=== PATIENT | female | born 1990 | race Caucasian/White ===

== ENCOUNTER → 2021-05-18 12:57 | Outpatient (CLI) | payer BC, SELFPAY ==
--- NOTE | ~2021-05-18 | US_ITS ---
EXAMINATION: US OB /maternal detail DATE: 05/18/2021 13:30 INDICATION: Second trimester anatomic survey TECHNIQUE: Real-time ultrasound of the pelvis was performed. COMPARISON: None. FINDINGS: There is a single living fetus in variable presentation. The placenta is anterior and 4.7 cm from the internal cervical os. heart rate is 147 beats per minute (bpm). cardiac activity and fe lashell movement are noted. The amniotic fluid index is subjectively normal. The following anatomy was identified as normal: 4 chamber heart 3 vessel cord cord insertion kidneys urinary bladder stomach spine diaphragm ventricles cisterna magna cerebellum The following biometric data were obtained: Biparietal diameter (BPD): 4.4 cm; head circumference (HC): 16.9 cm; abdominal circumference (AC): 14 .1 cm; femur length (FL): 2.8 cm. These measurements are concordant. Estimated weight is 278 g +/- 41 g, which correlates with the 48th percentile when 10/11/2021 is used as estimated date of delivery. As single measurements, these parameters are each equal to the following estimated gestational ages w ith ranges of +/- 2 standard deviations: BPD: 19 weeks 3 days ( 17 weeks 4 days - 21 weeks 1 days). HC: 19 weeks 4 days ( 18 weeks 1 days - 21 weeks 0 days). AC: 19 weeks 3 days ( 17 weeks 3 days - 21 weeks 4 days). FL: 18 weeks 5 days ( 16 weeks 6 days - 20 weeks 4 days). estimated gestational age based solely on measurements from this exam is 19 weeks 2 days +/- 1 weeks 2 days. IMPRESSION: 1. Single living fetus in variable presentation. 2. Estimated weight is 278 g +/- 41 g, which correlates with the 48th percentile when 10/11/2021 is used as estimated date of delivery. Reviewed, dictated and finalized at location A. IMPRESSION: 1. Single living fetus in variable presentation. 2. Estimated weight is 278 g +/- 41 g, which correlates with the 48th per centile when 10/11/2021 is used as estimated date of delivery.
== END ==
PROVIDERS: Visit Provider Obstetrics & Gynecology Gynecology
DX: Z34.92 Encounter for supervision of normal pregnancy, unspecified, second trimester (principal); Z3A.19 19 weeks gestation of pregnancy
CPT/HCPCS: 76805

== ENCOUNTER → 2021-07-06 13:25 | Outpatient (CLI) | payer BC, SELFPAY ==
--- NOTE | ~2021-07-06 | US_ITS ---
EXAMINATION: US OB follow up DATE: 07/06/2021 13:45 INDICATION: Size greater than dates, second trimester TECHNIQUE: Real-time ultrasound of the pelvis was performed. The interpreting radiologist was not pre sent for the study. COMPARISON: 05/18/2021 FINDINGS: There is a single living fetus in vertex presentation. The placenta is anterior and 8.7 cm from the internal cervical os. cardiac activity and movement are noted. heart rate is 150 beats per minute (bpm). The amniotic fluid index is 21.0 cm which is normal. The following biometric data were obtained: Biparietal diameter (BPD): 6.8 cm; head circumference (HC): 24.7 cm; abdominal circumference (AC): 22 .2 cm; femur length (FL): 5.0 cm. These measurements are concordant. Estimated weight is 989 g +/- 148 g, which correlates with the 69th percentile when 10/11/2021 is used as estimated date of delivery. As single measurements, these parameters are each equal to the following estimated gestational ages w ith ranges of +/- 2 standard deviations: BPD: 27 weeks 3 days ( 25 weeks 2 days - 29 weeks 4 days). HC: 26 weeks 6 days ( 24 weeks 6 days - 29 weeks 0 days). AC: 26 weeks 5 days ( 24 weeks 3 days - 28 weeks 6 days). FL: 27 weeks 0 days ( 24 weeks 6 days - 29 weeks 0 days). estimated gestational age based solely on measurements from this exam is 27 weeks 0 days +/- 1 weeks 6 days. IMPRESSION: 1. Single living fetus in vertex presentation. 2. Normal amniotic fluid index. 3. Estimated weight is 989 g +/- 148 g, which correlates with the 69th percentile when 10/11/2021 is used as estimated date of delivery. Reviewed, dictated and finalized at location B. IMPRESSION: 1. Single living fetus in vertex presentation. 2. Normal amniotic fluid index. 3. Estimated weight is 989 g +/- 148 g, which correlates with the 69th pe rcentile when 10/11/2021 is used as estimated date of delivery.
== END ==
PROVIDERS: Visit Provider Obstetrics & Gynecology Gynecology
DX: O36.63X0 Maternal care for excessive fetal growth, third trimester, not applicable or unspecified (principal); Z3A.27 27 weeks gestation of pregnancy
CPT/HCPCS: 76816

== ENCOUNTER → 2021-08-12 13:30 | Outpatient (CLI) | payer BC, SELFPAY ==
--- NOTE | ~2021-08-12 | US_ITS ---
EXAMINATION: US OB follow up DATE: 08/12/2021 13:55 INDICATION: Size greater than dates during third trimester TECHNIQUE: Real-time ultrasound of the pelvis was performed. The interpreting radiologist was not pre sent for the study. COMPARISON: 07/06/2021 FINDINGS: There is a single living fetus in breech presentation. The placenta is anterior and 12.8 cm from the internal cervical os. cardiac activity and movement are noted. heart rate is 133 beats per minute (bpm). The amniotic fluid index is 21.5 cm which is normal. The following biometric data were obtained: Biparietal diameter (BPD): 8.1m; head circumference (HC): 30.1; abdominal circumference (AC): 27.3; f emur length (FL): 5.8m. These measurements are concordant. Estimated weight is 1775+/- 266, which correlates with the 39th percentile when 10/11/2021 as es timated date of delivery. As single measurements, these parameters are each equal to the following estimated gestational ages w ith ranges of +/- 2 standard deviations: BPD: 32weeks 4 days ( 29weeks 3 days - 35weeks 4 days). HC: 33weeks 3 days ( 3 weeks 3 days - 36weeks 3 days). AC: 31weeks 3 days ( 28weeks 3 days - 34weeks 3 days). FL: 30weeks 4 days ( 27weeks 5 days - 33weeks 4 days). estimated gestational age based solely on measurements from this exam is 32weeks 0 days +/- 2 w eeks 2 days. IMPRESSION: 1. Single living fetus in breech presentation. 2. Normal amniotic fluid index. 3. Estimated weight is 1775+/- 266, which correlates with the 39th percentile when 2d as estimated date of delivery. Reviewed, dictated and finalized at location F. OPERATOR IMPRESSION: 1. Single living fetus in breech presentation. 2. Normal amniotic fluid index. 3. Estimated weight is 1775+/- 266, which correlates with the 39th percen tile when 10/11/2021 as estimated date of delivery.
== END ==
PROVIDERS: Visit Provider Nurse Practitioner
DX: Z34.93 Encounter for supervision of normal pregnancy, unspecified, third trimester (principal); Z3A.32 32 weeks gestation of pregnancy
CPT/HCPCS: 76816

== ENCOUNTER 2021-09-28 10:26 | Outpatient (CLI) | payer BC, SELFPAY ==
[2021-09-28 11:15] VITALS: BP 135/80; PULSE 103
[2021-09-28 11:19] LABS: Basophils Percent Auto 0.4 % (0.2-1.2); Eosinophils Absolute Auto 0.1 K/mm3 (0-0.3); Eosinophils Percent Auto 0.5 % (0-4.4); Hematocrit 35.9 % (37.0-47.0); Hemoglobin 12.2 g/dL (12.0-15.0); Immature Granulocyte Absolute 0.13 K/mm3 (0.00-0.031); Immature Granulocyte Percent A 1.2 % (0-0.5); Lymphocytes Absolute Auto 1.72 K/mm3 (0.9-3.2); Lymphocytes Percent Auto 15.8 % (18.3-44.2); Mean Corpuscular Hemoglobin 31.5 pg (26-34); Mean Corpuscular Volume 92.8 fl (80-100); Mean Platelet Volume 10.8 fl (7.4-10.4); Monocytes Absolute Auto 0.9 K/mm3 (0.1-0.6); Monocytes Percent Auto 8.5 % (2.6-8.5); Neutrophils Percent Auto 73.6 % (45.5-73.1); Platelet Count Result 191 k/mm3 (150-375); Red Blood Count 3.87 M/mm3 (4.2-5.4); Red Cell Distribution Width 13.2 % (11.5-14.5); White Blood Count 10.9 K/mm3 (4.5-10.0)
[2021-09-28 11:22] LABS: Add Urine Microscopic? NO; Appearance Urine Clear (Clear); Bilirubin Urine Negative (Negative); Blood Urine Negative (Negative); Color Urine Straw (Yellow); Glucose Urine UA Negative (Negative); Ketones Urine Negative (Negative); Leukocyte Esterase Ur Negative LEU/UL (NEGATIVE); Nitrate Urine Negative (Negative); Protein Urine Negative (Negative); Specific Grav Ur 1.004 (1.001-1.035); Urobilinogen Urine Negative mg/dL (<2.0)
[2021-09-28 11:30] VITALS: BP 137/82; PULSE 101
[2021-09-28 11:34] LABS: Alanine Aminotransferase 13 U/L (4-35); Albumin Level 3.7 g/dL (3.5-5.1); Alkaline Phosphatase 145 U/L (38-126); Anion Gap 10 mmol/L (8-16); Aspartate Amino Transferase 19 U/L (14-36); Bilirubin,Total 0.7 mg/dL (0.2-1.3); Blood Urea Nitrogen 7 mg/dL (7-17); Calcium 8.7 mg/dL (8.4-10.2); Carbon Dioxide 19 mmol/L (22-30); Chloride 104 mmol/L (98-107); Estimated Glomerular Filt Rate > 60; Glucose 103 mg/dL (65-110); Potassium 3.8 mmol/L (3.4-5.0); Sodium 133 mmol/L (137-145)
[2021-09-28 11:45] VITALS: BP 125/77; PULSE 97
[2021-09-28 12:00] VITALS: BP 125/84; PULSE 100
[2021-09-28 12:15] VITALS: BP 125/77; PULSE 102
[2021-09-28 12:30] VITALS: BP 135/91; PULSE 104
[2021-09-28 12:32] LABS: Creatinine Urine 29.6 mg/dL; Total Protein Urine Random 12 mg/dL; Ur Ttl Prot Creatinine Ratio 0.41 mg/mg (0-0.20)
--- NOTE | 2021-09-28 12:45 | PC.NURSE ---
1245- Spoke To Dr. Bean, patient labs and BPs reviewed. Orders to discharge to home with 24 hour urine, inductions scheduled for Monday10/04/2021 for 0500.
--- NOTE | 2021-09-29 06:56 | PM.OBTRLD ---
OB - Triage/Final Diagnosis Visit Information Reason for evaluation: other (PIH) Comments/Additional reasons for admission: I have assessed the risk for this patient, Stacy Doshi, and determined that she would benefit from observation care. Evaluation Laboratory results: Laboratory Tests 09/28/21 09/28/21 09/28/21 11:07 11:07 11:07 WBC 10.9 H RBC 3.87 L Hgb 12.2 Hct 35.9 L MCV 92.8 MCH 31.5 MCHC 34.0 RDW 13.2 Plt Count 191 MPV 10.8 H Immature Gran % (Auto) 1.2 H Neut % (Auto) 73.6 H Lymph % (Auto) 15.8 L Williams % (Auto) 8.5 Eos % (Auto) 0.5 Baso % (Auto) 0.4 Lymph # (Auto) 1.72 Williams # (Auto) 0.9 H Eos # (Auto) 0.1 Baso # (Auto) 0.0 Abs Immat Gran (auto) 0.13 H Absolute Neuts (auto) 8.0 H Absolute Nucleated RBC 0.0 Nucleated RBC % 0.0 Sodium Potassium Chloride Carbon Dioxide Anion Gap BUN Creatinine Estim Creat Clear Calc Estimated GFR Glucose Uric Acid Calcium Total Bilirubin AST ALT Alkaline Phosphatase Total Protein Albumin Urine Color Straw Urine Appearance Clear Urine pH 7.0 Ur Specific [place] 1.004 Urine Protein Negative Urine Glucose (UA) Negative Urine Ketones Negative Ur Blood (Man) Negative Urine Nitrate Negative Urine Bilirubin Negative Urine Urobilinogen Negative Ur Leukocyte Esterase Negative U Random Total Protein 12 Urine Creatinine 29.6 Protein/Creat Ratio 2 0.41 H 09/28/21 11:07 WBC RBC Hgb Hct MCV MCH MCHC RDW Plt Count MPV Immature Gran % (Auto) Neut % (Auto) Lymph % (Auto) Williams % (Auto) Eos % (Auto) Baso % (Auto) Lymph # (Auto) Williams # (Auto) Eos # (Auto) Baso # (Auto) Abs Immat Gran (auto) Absolute Neuts (auto) Absolute Nucleated RBC Nucleated RBC % Sodium 133 L Potassium 3.8 Chloride 104 Carbon Dioxide 19 L Anion Gap 10 BUN 7 Creatinine 0.50 L Estim Creat Clear Calc Not Reportable Estimated GFR > 60 Glucose 103 Uric Acid 5.0 Calcium 8.7 Total Bilirubin 0.7 AST 19 ALT 13 Alkaline Phosphatase 145 H Total Protein 6.0 L Albumin 3.7 Urine Color Urine Appearance Urine pH Ur Specific [place] Urine Protein Urine Glucose (UA) Urine Ketones Ur Blood (Man) Urine Nitrate Urine Bilirubin Urine Urobilinogen Ur Leukocyte Esterase U Random Total Protein Urine Creatinine Protein/Creat Ratio 2 Vital signs: Vital Signs - 24 hr 09/28/21 11:15 09/28/21 11:30 09/28/21 11:45 Pulse Rate 103 H 101 H 97 Blood Pressure 135/80 137/82 125/77 09/28/21 12:00 09/28/21 12:15 09/28/21 12:30 Pulse Rate 100 102 H 104 H Blood Pressure 125/84 125/77 135/91 H
== END 2021-09-28 12:45 | disposition home or self-care (01) ==
LOC: ANHOBOP 10:31 → ANHOBPP 10:31
PROVIDERS: Visit Provider Obstetrics & Gynecology Gynecology
DX: O13.9 Gestational [pregnancy-induced] hypertension without significant proteinuria, unspecified trimester (principal); Z3A.00 Weeks of gestation of pregnancy not specified
CPT/HCPCS: 36415; 59025; 80053; 81003; 82570; 84156; 84550; 85025; 87086; 99199

== ENCOUNTER 2021-09-29 18:30 | Outpatient (NON) | payer BC, SELFPAY ==
[2021-09-29 18:38] VITALS: BMI 40.1
[2021-09-29 20:10] LABS: Collection Time Urine 24 HOURS
[2021-09-29 20:13] LABS: Total Volume 24 Hour Urine 2500 ml
[2021-09-29 20:19] LABS: Specific Gravity Ur 1.015
[2021-09-29 20:27] LABS: Creatinine Clearance Urine 160.9 ml/min (75-125); Creatinine Urine 58.6 mg/dL; Patient Weight 249 Lbs; Total Protein Urine 24 Hr 225 mg/24hr (28-141); Total Protein Urine Random 9 mg/dL
== END 2021-09-29 18:31 | disposition home or self-care (01) ==
LOC: ANHOBOP 18:35
PROVIDERS: Visit Provider Obstetrics & Gynecology Gynecology
DX: O13.3 Gestational [pregnancy-induced] hypertension without significant proteinuria, third trimester (principal); Z3A.40 40 weeks gestation of pregnancy
CPT/HCPCS: 81050; 82575; 84156

== ENCOUNTER 2021-10-04 05:09 | Inpatient (IN) | payer BC, SELFPAY ==
[2021-10-04] VITALS (170 sets, daily range): BP systolic 84–213; BP diastolic 44–195; PULSE 78–127; TEMP 36.7–37.7; O2SAT 91–100; BMI 40.4
--- NOTE | 2021-10-04 05:45 | LDADM ---
This patient, Stacy Doshi, was admitted to Labor/Delivery/Recovery 108 on 10/04/21 at 05:09. Plans for labor, pain management and were discussed with patient. Patient/family oriented to hospital policies and general routines including ID bracelet, bed and alarms, visiting hours, pain management, procedures, bathroom and other care routines, personal items, smoking policy, room service/diet and guest tray routines, security routines, and visiting hours. Patient/Family are encouraged to report perceived risks to care and to ask questions if they do not understand what they are told or what they should do. See [facility]BIX for further documentation.
[2021-10-04 05:49] LABS: Basophils Absolute Auto 0.1 K/mm3 (0.0-0.1); Basophils Percent Auto 0.4 % (0.2-1.2); Eosinophils Absolute Auto 0.1 K/mm3 (0-0.3); Eosinophils Percent Auto 0.6 % (0-4.4); Hematocrit 36.8 % (37.0-47.0); Hemoglobin 12.7 g/dL (12.0-15.0); Immature Granulocyte Absolute 0.11 K/mm3 (0.00-0.031); Immature Granulocyte Percent A 0.9 % (0-0.5); Lymphocytes Absolute Auto 2.29 K/mm3 (0.9-3.2); Lymphocytes Percent Auto 19.3 % (18.3-44.2); Mean Corpuscular HGB Conc 34.5 g/dl (32-36); Mean Corpuscular Hemoglobin 31.6 pg (26-34); Mean Corpuscular Volume 91.5 fl (80-100); Mean Platelet Volume 10.8 fl (7.4-10.4); Monocytes Absolute Auto 0.9 K/mm3 (0.1-0.6); Monocytes Percent Auto 7.7 % (2.6-8.5); Neutrophils Absolute Auto 8.5 K/mm3 (1.3-6.7); Neutrophils Percent Auto 71.1 % (45.5-73.1); Platelet Count Result 199 k/mm3 (150-375); Red Blood Count 4.02 M/mm3 (4.2-5.4); Red Cell Distribution Width 13.1 % (11.5-14.5); White Blood Count 11.9 K/mm3 (4.5-10.0)
[2021-10-04 06:02] LABS: Alanine Aminotransferase 14 U/L (4-35); Albumin Level 3.7 g/dL (3.5-5.1); Alkaline Phosphatase 158 U/L (38-126); Anion Gap 5 mmol/L (8-16); Aspartate Amino Transferase 22 U/L (14-36); Bilirubin,Total 0.9 mg/dL (0.2-1.3); Blood Urea Nitrogen 9 mg/dL (7-17); Calcium 9.2 mg/dL (8.4-10.2); Carbon Dioxide 21 mmol/L (22-30); Chloride 106 mmol/L (98-107); Estimated CRCL calculation 149 ml/min; Estimated Glomerular Filt Rate > 60; Glucose 94 mg/dL (65-110); Potassium 4.1 mmol/L (3.4-5.0); Sodium 132 mmol/L (137-145)
[2021-10-04 06:10] LABS: Uric Acid 5.4 mg/dL (2.5-7.5)
[2021-10-04] MEDS: LACTATED RINGERS 1,000 ML 125 ML IV CONT ×4 (06:14→18:27)
[2021-10-04] MEDS: OXYTOCIN 30 UNITS/NS 500 ML 30 UNITS/500 ML BAG IV CONT (06:14)
--- NOTE | 2021-10-04 11:23 | WPDOBADMIT ---
Obstetrics - Admit Note Admission Note: record reviewed. No pertinent additions to the history and/or any subsequent changes in the physical findings that are not consistent with the expected course of the were found. Additions to the history and/or subsequent changes in the physical findings follow. None. Here for MIL at 39 2/7 wks. Cervix 1-2/50/-2 Anterior. AROM with clear fluid. FHTs reactive
--- NOTE | 2021-10-04 14:50 | WPDANESEPP ---
Anes - Eval Pre Procedure Procedure: labor epidural Date/Time: 10/04/21 14:50 Surgeon: cindy Pre Op Diagnosis: IOL Patient Data Age: 30 Gender: F Height: 1.68 m Weight: 113.63 kg Last Vital Signs Temp 36.9 C 10/04/21 13:30 Pulse 87 10/04/21 14:45 BP 138/79 10/04/21 14:45 Allergies Allergy/AdvReac Type Severity Reaction Status Date / Time cefaclor Allergy Unknown Rash Verified 10/04/21 06:12 Home Medications Medication Instructions Recorded Confirmed Type PNV cmb#95-ferrous fumarate-FA 1 tablet PO DAILY 09/09/21 09/09/21 History [] Laboratory Tests 10/04/21 10/04/21 10/04/21 05:39 05:39 05:39 WBC 11.9 K/mm3 H K/mm3 (4.5-10.0) RBC 4.02 M/mm3 L M/mm3 (4.2-5.4) Hgb 12.7 g/dL g/dL (12.0-15.0) Hct 36.8 % L % (37.0-47.0) MCV 91.5 fl fl (80-100) MCH 31.6 pg pg (26-34) MCHC 34.5 g/dl g/dl (32-36) RDW 13.1 % % (11.5-14.5) Plt Count 199 k/mm3 k/mm3 (150-375) MPV 10.8 fl H fl (7.4-10.4) Immature Gran % (Auto) 0.9 % H % (0-0.5) Neut % (Auto) 71.1 % % (45.5-73.1) Lymph % (Auto) 19.3 % % (18.3-44.2) Banner % (Auto) 7.7 % % (2.6-8.5) Eos % (Auto) 0.6 % % (0-4.4) Baso % (Auto) 0.4 % % (0.2-1.2) Lymph # (Auto) 2.29 K/mm3 K/mm3 (0.9-3.2) Banner # (Auto) 0.9 K/mm3 H K/mm3 (0.1-0.6) Eos # (Auto) 0.1 K/mm3 K/mm3 (0-0.3) Baso # (Auto) 0.1 K/mm3 K/mm3 (0.0-0.1) Abs Immat Gran (auto) 0.11 K/mm3 H K/mm3 (0.00-0.031) Absolute Neuts (auto) 8.5 K/mm3 H K/mm3 (1.3-6.7) Absolute Nucleated RBC 0.0 K/mm3 K/mm3 (0.0-0.012) Nucleated RBC % 0.0 % % (0.0-0.2) Sodium Potassium Chloride Carbon Dioxide Anion Gap BUN Creatinine Estim Creat Clear Calc Estimated GFR Glucose Uric Acid 5.4 mg/dL mg/dL (2.5-7.5) Calcium Total Bilirubin AST ALT Alkaline Phosphatase Total Protein Albumin RPR Pending Blood Type Antibody Screen 10/04/21 10/04/21 05:39 05:39 WBC RBC Hgb Hct MCV MCH MCHC RDW Plt Count MPV Immature Gran % (Auto) Neut % (Auto) Lymph % (Auto) [place]anner % (Auto) Eos % (Auto) Baso % (Auto) Lymph # (Auto) [place] # (Auto) Eos # (Auto) Baso # (Auto) Abs Immat Gran (auto) Absolute Neuts (auto) Absolute Nucleated RBC Nucleated RBC % Sodium 132 mmol/L L mmol/L (137-145) Potassium 4.1 mmol/L mmol/L (3.4-5.0) Chloride 106 mmol/L mmol/L (98-107) Carbon Dioxide 21 mmol/L L mmol/L (22-30) Anion Gap 5 mmol/L L mmol/L (8-16) BUN 9 mg/dL mg/dL (7-17) Creatinine 0.60 mg/dL L mg/dL (0.7-1.0) Estim Creat Clear Calc 149 ml/min ml/min Estimated GFR > 60 (59 - ) Glucose 94 mg/dL mg/dL (65-110) Uric Acid Calcium 9.2 mg/dL mg/dL (8.4-10.2) Total Bilirubin 0.9 mg/dL mg/dL (0.2-1.3) AST 22 U/L U/L (14-36) ALT 14 U/L U/L (4-35) Alkaline Phosphatase 158 U/L H U/L (38-126) Total Protein 7.0 g/dL g/dL (6.3-8.2) Albumin 3.7 g/dL g/dL (3.5-5.1) RPR Blood Type A Positive Antibody Screen Negative Patient hx anesthesia problems: none Family hx anesthesia problems: none Results Review: All pre-operative results and documents have been reviewed as part of the pre-operative evaluation. [facility] Family
[2021-10-04] MEDS: fentaNYL CITRATE INJ (*CRX) 100 MCG/2 ML VIAL IV PUSH (19:20)
[2021-10-04] MEDS: fentaNYL CITRATE INJ (*CRX) 100 MCG/2 ML VIAL (21:50)
[2021-10-04] MEDS: ONDANSETRON INJ 4 MG/2 ML VIAL IV PUSH (22:45)
--- NOTE | 2021-10-04 23:56 | PM.OBPRVD ---
OB - Delivery Note Procedure Delivery date: 10/04/21 Procedure: events: Labor Induction Intrapartal events: None Induction method: AROM and per pitocin protocol Delivery monitor: external FHT and internal uterine Route of delivery: Laceration Description: None Specimen: No Quantitative Blood Loss (ml): 150 Anesthesia type: Epidural Disposition: PACU Baby Date of : 10/04/21 Weeks of gestation at delivery: 39 gender: Male Weight (pounds): 8 Weight (ounces): 12 presentation: vertex position: Right Occiput Anterior Placenta delivery description: Spontaneous cord vessel description: 3 Vessels and Nuchal Cord score one minute: 8 score five minutes: 9
--- NOTE | 2021-10-04 23:58 | PM.OBDSVD ---
DS: Admitting Diagnosis Discharge Date 10/06/21 Admitting Diagnosis MIL at 39 2/7 wks DS: Discharge Diagnosis Discharge Diagnosis (1) (normal spontaneous vaginal delivery): Code(s): O80 - Encounter for full-term uncomplicated delivery Status: Acute OB - DS: Summary OB Procedures : Ultrasound OB Procedures Intrapartum: Spontaneous Vag Delivery OB Procedures: : None Peripartum Data Delivery Method: Natural Vaginal Laceration Description: None complications: none Status at Discharge Functional status at discharge: independent ambulation Overall status at discharge: patient is progressing back to baseline Time Spent with Patient Time attestation: Total time spent providing and/or coordinating discharge services: DS: Data Data Completed and Pending Labs on day of discharge: Labs from last 24 hours 10/04/21 10/04/21 10/04/21 05:39 05:39 05:39 WBC RBC Hgb Hct MCV MCH MCHC RDW Plt Count MPV Immature Gran % (Auto) Neut % (Auto) Lymph % (Auto) [place] % (Auto) Eos % (Auto) Baso % (Auto) Lymph # (Auto) [place] # (Auto) Eos # (Auto) Baso # (Auto) Abs Immat Gran (auto) Absolute Neuts (auto) Absolute Nucleated RBC Nucleated RBC % Sodium 132 L Potassium 4.1 Chloride 106 Carbon Dioxide 21 L Anion Gap 5 L BUN 9 Creatinine 0.60 L Estim Creat Clear Calc 149 Estimated GFR > 60 Glucose 94 Uric Acid Calcium 9.2 Total Bilirubin 0.9 AST 22 ALT 14 Alkaline Phosphatase 158 H Total Protein 7.0 Albumin 3.7 RPR Pending Blood Type A Positive Antibody Screen Negative 10/04/21 10/04/21 05:39 05:39 WBC 11.9 H RBC 4.02 L Hgb 12.7 Hct 36.8 L MCV 91.5 MCH 31.6 MCHC 34.5 RDW 13.1 Plt Count 199 MPV 10.8 H Immature Gran % (Auto) 0.9 H Neut % (Auto) 71.1 Lymph % (Auto) 19.3 [place] % (Auto) 7.7 Eos % (Auto) 0.6 Baso % (Auto) 0.4 Lymph # (Auto) 2.29 Holt # (Auto) 0.9 H Eos # (Auto) 0.1 Baso # (Auto) 0.1 Abs Immat Gran (auto) 0.11 H Absolute Neuts (auto) 8.5 H Absolute Nucleated RBC 0.0 Nucleated RBC % 0.0 Sodium Potassium Chloride Carbon Dioxide Anion Gap BUN Creatinine Estim Creat Clear Calc Estimated GFR Glucose Uric Acid 5.4 Calcium Total Bilirubin AST ALT Alkaline Phosphatase Total Protein Albumin RPR Blood Type Antibody Screen Discharge Plan Discharge Attending physician on discharge: Harmony Bean Discharging Clinician: Harmony Bean Anticipated Discharge Date/Time: 10/06/21 23:59 Patient Disposition: Home, Self-Care Activity: may shower and pelvic rest Diet: regular Patient Instructions: Antibiotic Form Stand Alone Forms: General Discharge Information Follow-up/Referrals: Harmony Bean MD [Physician] - 6 Weeks Discharge Medications: New norethindrone (contraceptive) 0.35 mg tablet 0.35 mg PO DAILY Qty: 84 RF: 3 Continued PNV cmb#95-ferrous fumarate-FA [] 28 mg iron- 800 mcg Tablet 1 tablet PO DAILY RF: 0 Date of admission: 10/04/21 05:09 Primary Care Provider: PHYSICIAN,RECEIVABLES SPECIALIST Admitting Provider: Harmony Bean Attending physician on admission: Harmony Bean Condition: Stable
[2021-10-05] VITALS (16 sets, daily range): BP systolic 115–141; BP diastolic 56–93; PULSE 72–113; RESP 16–18; TEMP 36.2–37.6; O2SAT 98–100
[2021-10-05] MEDS: OXYTOCIN 30 UNITS/NS 500 ML 30 UNITS/500 ML BAG 125 UNITS IV CONT (00:13)
[2021-10-05] MEDS: IBUPROFEN 600 MG TABLET PO ×3 (02:18→15:32)
--- NOTE | 2021-10-05 02:23 | OBPPTRN ---
Patient transferred to post room #287 via W/C. Support person present. Oriented to unit, room, information board, rooming in, admission packet and security measures. Patient verbalizes understanding.
--- NOTE | 2021-10-05 07:41 | PM.OBPNVD ---
OB - PN: Subj Subjective Date/time seen: 10/05/21 07:41 Patient comments: no complaints and pain well controlled baby status: doing well OB - PN: Obj Data Labs CBC & Chem 7: 10/04/21 05:39 10/04/21 05:39 OB - PN A/P Plan day: 1 Plan: routine care Time Spent With Patient Time: Total time spent is greater than 50% in coordination of care (as documented) at patient's floor/unit and/or counseling patient: Exam : Bimanual exam- vagina & uterus: other (Uterus firm, nt @U)
--- NOTE | 2021-10-05 09:59 | PC.NURSE ---
0742 -Introductions were made and mother led the discussion of her desires and plan to feed her baby. Reviewed handwashing to prevent infection before and after taking care of her baby. Mother verbalizes she is able to independently latch without discomfort and breastfed her other two children but the last feeding baby was sleepy and is now getting a circumcision. Discussed how to watch for early feeding cues, place skin to skin, then feeding baby when is ready or every 2-3 hours. Reviewed positioning/alignment with the use of the mom and baby guide. Reviewed there is to be no pain with , how to detach infant from the breast, visuals to watch for to confirm effective . Mother has verbalized understanding watching for feeding cues for responsive feeding or how to stimulate infant to initiate from the start of the last feeding with skin to skin and stimulation. Educated mother on hand expression, feeding colostrum to the infant to encouraged wakefulness and milk production. Mom demonstrated understanding. Mother voiced understanding to feed infant when she sees feeding cues, 8-12 times in 24 hours approximately every 2-3 hours from the start of the last feeding or she has discomfort with nursing. Reported to primary RN.
[2021-10-05] MEDS: DOCUSATE SODIUM 100 MG CAPSULE PO ×2 (10:09→15:32)
[2021-10-05] MEDS: MULTIVIT/MIN/PREN/FOL AC/IRON TABLET 1 TAB PO (10:09)
--- NOTE | 2021-10-05 12:58 | WPDANLDPN2 ---
Anes-Prog Note L&D Date/Time: 10/05/21 12:58 Comfortable throughout: labor and delivery Neuraxial method: epidural Epidural/Spinal procedure site: clean & non-tender Neuro status: Neuro function grossly intact. Cardiovascular status: normal Respiratory status: normal Airway patency: baseline Mental status: baseline Post-Op hydration status: normal Vital Signs: Last Vital Signs Temp 36.2 C L 10/05/21 11:41 Pulse 92 10/05/21 11:41 Resp 16 10/05/21 11:41 BP 116/56 L 10/05/21 11:41 Pulse Ox 98 10/05/21 11:41 Pain score (VAS): 09/13 I/O: Intake & Output 10/04/21 10/05/21 10/05/21 23:59 07:59 15:59 Intake Total 1999 1499 Balance 1999 1499 Post-procedural complaints: other (Pt states epidural did not work after multiple attempts) Patient feedback: Patient satisfied with anesthetic care.
--- NOTE | 2021-10-05 13:32 | PC.NURSE ---
1230 - Introductions were made and mother led the discussion of her desires and plans to feed her baby. Reviewed handwashing to prevent infection before and after taking care of her baby. Mother verbalizes she is unable to independently latch due to sleepiness. Discussed how to watch for early feeding cues, place infant skin to skin, then feeding baby when is ready or every 2-3 hours. Reviewed positioning/alignment with the use of the. Encouraged mother with infant to the right breast in football position using nipple to nose. shows feeding cues when skin to skin vertically between her breast and sleepy at breast. Mom demonstrates stimulating infant to eat. latches effectively in cross cradle position on the right breast. Mom denies any nipple discomfort. Reviewed there is to be no pain with , how to detach from the breast, visuals to watch for to confirm effective (rocking motion/ suck/ swallow ratio) . Reviewed effective latching with resources tool/handout. Nipple tenderness is relieved with improving positioning and effective latching. Use of warm, wet compress to nipples and air dry for improved comfort. Infant was able to maintain effective latch. Mother has verbalized understanding and demonstrated watching for feeding cues for responsive feeding or how to stimulate infant to initiate from the start of the last feeding. Mom changes positions and demonstrates understanding of effective infant to keep drinking at the breast. Dad is actively involved and educated on how to support the mother. Mother voiced understanding to feed when she sees feeding cues, 8-12 times in 24 hours approximately every 2-3 hours from the start of the last feeding or she has discomfort with nursing. Reported to primary RN.
[2021-10-05] MEDS: ACETAMINOPHEN 325 MG TABLET 650 MG PO (13:41)
[2021-10-05 16:48] LABS: Rapid Plasma Reagin Non-Reactive (NonReactive)
[2021-10-06] VITALS: BP 120/72; PULSE 78; RESP 18; TEMP 37.1
[2021-10-06] MEDS: IBUPROFEN 600 MG TABLET PO ×2 (04:11→09:42)
[2021-10-06 04:15] VITALS: BP 121/72; PULSE 69; RESP 18; TEMP 36.8
[2021-10-06 05:39] LABS: Hematocrit 29.7 % (37.0-47.0); Hemoglobin 10.3 g/dL (12.0-15.0)
--- NOTE | 2021-10-06 05:50 | P.PNOB_ITS ---
OB - PN: Subj Subjective Date/time seen: 10/06/21 05:50 Patient comments: no complaints and pain well controlled baby status: doing well OB - PN: Obj Data Labs CBC & Chem 7: 10/06/21 04:16 10/04/21 05:39 Labs: Laboratory Results - last 24 hr 10/04/21 10/06/21 05:39 04:16 Hgb 10.3 L Hct 29.7 L RPR Non-reactive OB - PN A/P Plan day: 2 Plan: routine care, discharge home, follow up 6 weeks and other (plan s POP) Time Spent With Patient Time: Total time spent is greater than 50% in coordination of care (as documented) at patient's floor/unit and/or counseling patient: Exam : Bimanual exam- vagina & uterus: other (Uterus firm, nt @U)
--- NOTE | 2021-10-06 08:00 | PC.NURSE ---
PT introductions made and plan of care discussed per post , pain management, breast feeding, daily care activities and pending discharge to home. PT received such instructions per one to one discussion, mom baby care guide and demonstrations. PT verbalized understanding and no barriers to learning identified. PT and spouse both recipients of such instructions this shift.
[2021-10-06 09:15] VITALS: BP 121/82; PULSE 73; RESP 16; TEMP 36.6; O2SAT 100
[2021-10-06] MEDS: LANOLIN (LANSINOH) 7.5 GM CREAM 1 APPLIC TOPICAL (09:42)
[2021-10-06] MEDS: MULTIVIT/MIN/PREN/FOL AC/IRON TABLET 1 TAB PO (09:42)
[2021-10-06] MEDS: ACETAMINOPHEN 325 MG TABLET 650 MG PO (09:43)
[2021-10-06 09:45] VITALS: PULSE 73; RESP 16; O2SAT 100; BMI 40.0
[2021-10-06] MEDS: DOCUSATE SODIUM 100 MG CAPSULE PO (09:45)
--- NOTE | 2021-10-06 11:00 | PC.NURSE ---
PT received discharge instructions per protocol and verbalized understanding.
--- NOTE | 2021-10-06 11:33 | PC.NURSE ---
PT discharged to home ambulatory accompanied by spouse and and taken to waiting car. Follow up appts confirmed
[2021-10-08 09:58] VITALS: BP 136/73; PULSE 88; RESP 20; TEMP 37.2; O2SAT 98
== END 2021-10-06 11:33 | disposition home or self-care (01) | DRG 807 ==
LOC: ANHLDR 10-05 → ANHOB2 10-05 02:39
PROVIDERS: Admitting Provider Obstetrics & Gynecology Gynecology; Visit Provider Obstetrics & Gynecology Gynecology
DX: O69.81X0 Labor and delivery complicated by cord around neck, without compression, not applicable or unspecified (principal); Z37.0 Single live birth; O13.4 Gestational [pregnancy-induced] hypertension without significant proteinuria, complicating childbirth; O76 Abnormality in fetal heart rate and rhythm complicating labor and delivery; Z3A.39 39 weeks gestation of pregnancy
CPT/HCPCS: 36415; 80053; 84550; 85014; 85018; 85025; 86592; 86850; 86900; 86901; A9270; J2405; J2590; J2795; J3010; J7120

== ENCOUNTER 2022-03-06 18:51 | Emergency (ER) | payer BC, SELFPAY ==
[2022-03-06 18:54] VITALS: BP 125/72; PULSE 107; RESP 20; TEMP 37.2; O2SAT 100
--- NOTE | 2022-03-06 19:22 | ED.GENADULT ---
HPI - General Adult General Chief complaint: Unspecified Stated complaint: Low Back Pain/Abdominal Pain Time Seen by Provider: 03/06/22 19:23 Source: patient Mode of arrival: ambulatory Limitations: no limitations History of Present Illness HPI narrative: 31-year-old female presenting for complaint of waking this morning with body aches and mild nausea, and pain all over her back. Endorses feeling warm today. She is currently breast-feeding. She states is similar to when she had mastitis, however she denies redness, pain, or discharge from her breast. She denies associated vomiting, diarrhea, fevers or chills. She was positive for covid 02/2022, no treatment and symptoms have resolved. She has not taken anything for symptoms. Denies sick contacts Related Data Home Medications Medication Instructions Recorded Confirmed vit no.95-ferrous 1 tablet PO DAILY 09/09/21 03/06/22 fumarate 28 mg-folic acid 800 mcg tablet () Allergies Allergy/AdvReac Type Severity Reaction Status Date / Time cefaclor Allergy Unknown Rash Verified 03/06/22 18:56 Review of Systems Review of Systems: CONSTITUTIONAL: Denies fever, chills, or sweats. EYES: Denies visual changes, redness, or discharge. ENT: Denies rhinorrhea, congestion, sore throat, or otalgia. CARDIOVASCULAR: Denies chest pain, palpitations, or edema. RESPIRATORY: Denies cough or dyspnea. GASTROINTESTINAL: Denies abdominal pain, vomiting, or diarrhea. GENITOURINARY: Denies dysuria or hematuria. SKIN: Denies rash, itching, or wounds. MUSCULOSKELETAL: Denies joint pain, or myalgia. NEUROLOGIC: Denies headache, numbness, tingling, or weakness. All systems reviewed & are unremarkable except as noted in HPI and below [facility] Family History Family History Other No pertinent family history Social History Social History Smoking status: Never smoker Substance use: never Spiritual care concerns: No Comments At time of signature, I have reviewed and agree with nursing past medical, surgical, social and family history unless otherwise noted. Please see nursing chart for further information. There is no relevant family history pertinent to the presenting complaint Exam Narrative: GENERAL: Well-appearing EYES: EOMI. No redness or drainage. Conjunctivae normal. ENT: Mucous membranes pink and moist. No rhinorrhea. CHEST: Clear to auscultation. Bilateral breast exam normal HEART: Regular rate and rhythm. ABDOMEN: Soft, mild suprapubic tenderness, nondistended, normal active bowel sounds. EXTREMITIES: Normal range of motion. No edema. SKIN: Warm, dry, no rash. Capillary refill normal. Normal skin turgor. NEURO: No focal deficits. Alert and oriented x3. Gait steady. Course Course Emergency Course: Patient is aware of diagnosis, understands and agrees to treatment plan. Anticipatory guidance given. Patient agrees to follow-up as directed and is aware of reasons to seek care at the emergency department. Portions of this record may have been created with voice recognition software Level of Care: Express Care Visit Vital Signs Vital signs: Vital Signs Temperature 98.9 F 03/06/22 18:54 Pulse Rate 107 H 03/06/22 18:54 Respiratory Rate 20 03/06/22 18:54 Blood Pressure 125/72 03/06/22 18:54 Pulse Oximetry 100 03/06/22 18:54 Oxygen Delivery Room Air 03/06/22 18:54 Temperature 98.9 F 03/06/22 18:54 Pulse Rate 107 H 03/06/22 18:54 Respiratory Rate 20 03/06/22 18:54 Blood Pressure 125/72 03/06/22 18:54 Pulse Oximetry 100 03/06/22 18:54 Oxygen Delivery Room Air 03/06/22 18:54 Medical Decision Making MDM Narrative Medical decision making narrative: Pt is stable with c/o mild nausea and aching. Urine negative. She is advised on supportive measures and monitoring symptoms. Prescription f
== END 2022-03-06 19:47 | disposition home or self-care (01) ==
PROVIDERS: Emergency Provider Nurse Practitioner Family
DX: M54.50 Low back pain, unspecified (principal); R10.9 Unspecified abdominal pain; R11.0 Nausea
CPT/HCPCS: 81003; 87086; 87088; 99213; G0463